=== PATIENT | female | born 1990 | race Caucasian/White ===

== ENCOUNTER 2024-06-11 15:43 | Emergency (ER) | payer BC ==
[~2024-06-11] VITALS: Ht 170.2 cm; Wt 74.0 kg
[2024-06-11 18:52] VITALS: BP 121/74; TEMP 98.9; O2SAT 99
== END 2024-06-11 18:53 | disposition home or self-care (01) ==
LOC: M ED 15:43
DX: M79.604 Pain in right leg (principal); F41.9 Anxiety disorder, unspecified

== ENCOUNTER → 2024-12-05 | Outpatient (REF) | payer BC ==
[2024-12-05 16:08] LABS: APPEARANCE, URINE CLEAR (CLEAR); BACTERIA, URINE AUTO NEGATIVE (NEGATIVE); BILIRUBIN, URINE AUTO NEGATIVE (NEGATIVE); BLOOD, URINE BLOOD NEGATIVE (NEGATIVE); COLOR, URINE YELLOW (YELLOW); GLUCOSE, URINE (UA) AUTO NEGATIVE (NEGATIVE); KETONE, URINE AUTO NEGATIVE (NEGATIVE); LEUKOCYTE ESTERASE, URINE AUTO NEGATIVE (NEGATIVE); MUCUS, URINE SMALL (NEGATIVE); NITRITE, URINE AUTO NEGATIVE (NEGATIVE); PROTEIN, URINE AUTO NEGATIVE (NEGATIVE); RBC, URINE AUTO 1 /HPF (0-3); SPECIFIC GRAVITY URINE AUTO 1.018 (1.002-1.035); SQUAMOUS EPITHELIAL CELL UR AU 1 /HPF (0-6); UROBILINOGEN, URINE AUTO 0.2 mg/dL (0.0-2.0); WBC, URINE AUTO 0 /HPF (0-3)
== END ==
LOC: M SFHCWAGY 15:50
PROVIDERS: ATTEND Advanced Practice Midwife
DX: R30.0 Dysuria (principal)

== ENCOUNTER → 2024-12-13 | Outpatient (CLI) | payer BC ==
[2024-12-13 17:30] LABS: HEMATOCRIT 38.6 % (36.0-47.0); HEMOGLOBIN 13.4 g/dl (12.0-15.5); MEAN CORPUSCULAR HEMOGLOBIN 31.8 pg (27.0-33.0); MEAN CORPUSCULAR HGB CONC 34.7 g/dl (32.0-36.5); MEAN CORPUSCULAR VOLUME 91.5 fl (80.0-96.0); PLATELET COUNT, AUTOMATED 287 10^3/uL (150-450); RED BLOOD COUNT 4.22 10^6/uL (4.00-5.40); WHITE BLOOD COUNT 9.8 10^3/uL (4.0-10.0)
[2024-12-13 18:26] LABS: HIV 1&2 SCREEN NEGATIVE (NEGATIVE)
[2024-12-13 18:35] LABS: HEPATITIS C VIRUS ABY INDEX 0.06 INDEX (<0.8)
== END ==
LOC: M PLALAB 16:03
PROVIDERS: ATTEND Obstetrics & Gynecology
DX: Z34.80 Encounter for supervision of other normal pregnancy, unspecified trimester (principal)

== ENCOUNTER → 2024-12-17 | Outpatient (CLI) | payer BC | LOC: M WHC 09:52 | PROVIDERS: ATTEND Obstetrics & Gynecology | DX: Z36.89 Encounter for other specified antenatal screening (principal) ==

== ENCOUNTER → 2025-01-25 | Outpatient (CLI) | payer BC | LOC: M WHC 12:47 | PROVIDERS: ATTEND Nurse Practitioner Family | DX: Z34.80 Encounter for supervision of other normal pregnancy, unspecified trimester (principal) ==

== ENCOUNTER → 2025-04-02 | Outpatient (CLI) | payer BC ==
[2025-04-02 13:52] LABS: PLATELET COUNT, AUTOMATED 292 10^3/uL (150-450)
[2025-04-02 14:04] LABS: TOTAL PROTEIN,RANDOM URINE 31.9 MG/DL (0.0-14.0)
[2025-04-02 14:11] LABS: LDH LACTATE DEHYDROGENASE 159 U/L (120-246)
[2025-04-02 14:12] LABS: ALT/SGPT 25 U/L (7.0-40); AST/SGOT 28 U/L (<34); CREATININE FOR GFR 0.66 MG/DL (0.55-1.30); GLOMERULAR FILTRATION RATE > 90.0 (>60)
== END ==
LOC: M PLALAB 10:30
PROVIDERS: ATTEND Nurse Practitioner Family
DX: R03.0 Elevated blood-pressure reading, without diagnosis of hypertension (principal)

== ENCOUNTER → 2025-04-16 | Outpatient (REF) | payer BC | LOC: M PLALAB 10:35 | PROVIDERS: ATTEND Nurse Practitioner Family | DX: O09.813 Supervision of pregnancy resulting from assisted reproductive technology, third trimester (principal); Z3A.36 36 weeks gestation of pregnancy ==

== ENCOUNTER → 2025-04-24 | Outpatient (REF) | payer BC | LOC: M PLALAB 14:28 | PROVIDERS: ATTEND Nurse Practitioner Family | DX: R30.0 Dysuria (principal) ==

== ENCOUNTER 2025-05-16 16:05 | Inpatient (IN) | payer BC ==
[2025-05-16] VITALS (7 sets, daily range): BP systolic 127–158; BP diastolic 68–105; O2SAT 100
[~2025-05-16] VITALS: Ht 167.6 cm; Wt 88.0 kg
[2025-05-16] MEDS ORDERED: PRENTAB9 PO (16:30)
[2025-05-16] MEDS ORDERED: HOME MED LIST COMPLETE! XX SCH (16:30)
[2025-05-16] MEDS ORDERED: MM S100C PO (16:30)
[2025-05-16] MEDS ORDERED: CALC500T60 PO (16:30)
[2025-05-16] MEDS ORDERED: TRANEXAMIC ACID INJection 1,000 MG in NS 100 ML IV PRN (16:30)
[2025-05-16] MEDS ORDERED: LIDOCAINE 1% MDV 20 ML VIAL INFIL PRN (16:30)
[2025-05-16] MEDS: miSOPROStol 50 MCG 1/2 TABLET PO SCH (17:14)
[2025-05-16 17:17] LABS: PLATELET COUNT, AUTOMATED 245 10^3/uL (150-450)
[2025-05-16 17:29] LABS: TOTAL PROTEIN,RANDOM URINE 12.8 MG/DL (0.0-14.0)
[2025-05-16 17:33] LABS: LDH LACTATE DEHYDROGENASE 211 U/L (120-246)
[2025-05-16 17:34] LABS: ALT/SGPT 19 U/L (7.0-40); AST/SGOT 26 U/L (<34); CREATININE FOR GFR 0.71 MG/DL (0.55-1.30); GLOMERULAR FILTRATION RATE > 90.0 (>60)
[2025-05-16 18:06] LABS: HIV 1&2 SCREEN NEGATIVE (NEGATIVE)
[2025-05-17] VITALS (13 sets, daily range): BP systolic 118–151; BP diastolic 61–115; O2SAT 97
[2025-05-17] MEDS ORDERED: ONDANSETRON 4MG 2ML VIAL IV PRN (03:10)
[2025-05-17] MEDS ORDERED: LR 500 ML IV PRN (03:10)
[2025-05-17] MEDS ORDERED: NALOXONE INJ 0.4 MG/1 ML VIAL IV PRN (03:10)
[2025-05-17] MEDS ORDERED: EPIDURAL/PCA KEYS XX PRN (03:10)
[2025-05-17] MEDS ORDERED: diphenhydrAMINE 50 MG/ML VIAL IV PRN (03:10)
[2025-05-17] MEDS ORDERED: FENTANYL 2 MCG/ML ROPIVACAINE 0.2% IN 0.9% NACL 100 ML IVBAG As Ordered ONE (03:11)
[2025-05-17] MEDS: LR 1,000 ML IV SCH (03:17)
[2025-05-17] MEDS: FENTANYL/ROPIVACAINE/NACL BAG 100 ML EPIDURAL SCH (03:17)
[2025-05-17] MEDS: OXYTOCIN DRIP 30 UNITS in IV 1 EA IV PRN (03:48)
[2025-05-17] MEDS ORDERED: LR 1,000 ML IV SCH (04:15)
[2025-05-17] MEDS ORDERED: OXYTOCIN DRIP 30 UNITS in IV 1 EA IV SCH (04:15)
[2025-05-17] MEDS ORDERED: MOM 30 ML SUSPENSION UDC PO PRN (06:00)
[2025-05-17] MEDS ORDERED: DIBUCAINE 1% OINTMENT 30 GM TOP PRN (06:00)
[2025-05-17] MEDS ORDERED: ACETAMINOPHEN 500 MG TAB PO PRN (06:00)
[2025-05-17] MEDS ORDERED: ANUSOL HC CREAM 30 GM TOP PRN (06:00)
[2025-05-17] MEDS ORDERED: ACETAMINOPHEN 325 MG TAB PO PRN (06:00)
[2025-05-17] MEDS: OXYTOCIN DRIP 30 UNITS in IV 1 EA IV SCH (06:00)
[2025-05-17] MEDS ORDERED: METHYLERGONOVINE MALEATE 0.2 MG TAB PO PRN (06:00)
[2025-05-17] MEDS ORDERED: CALCIUM CARBONATE 500 MG CHEW U/D PO PRN (06:00)
[2025-05-17] MEDS ORDERED: RHOGAM 300MCG (1500IU) INJ IM SCH (06:00)
[2025-05-17] MEDS: PRENATAL VITAMINS CHEWABLE TABLET PO SCH (07:57)
[2025-05-17] MEDS: IBUPROFEN 600 MG TAB PO PRN (07:57)
[2025-05-17 21:38] LABS: HEPATITIS C VIRUS ABY INDEX 0.02 INDEX (<0.8)
[2025-05-18 05:42] VITALS: BP 119/76; O2SAT 98
[2025-05-18] MEDS: DOCUSATE SODIUM 100 MG CAPSULE PO PRN (09:18)
[2025-05-18] MEDS: IBUPROFEN 800 MG TAB PO PRN (09:19)
[2025-05-19] MEDS ORDERED: MEASLES,MUMPS,RUBELLA VACCINE INJ (MMR-II) SC.IMMUN ONE (09:00)
== END 2025-05-18 13:25 | disposition home or self-care (01) | DRG 560 ==
LOC: M LDI 16:05 → M OBS 05-17 06:30
PROVIDERS: ADMIT Obstetrics & Gynecology; ATTEND Obstetrics & Gynecology
PROC: 3E033VJ Introduction of Other Hormone into Peripheral Vein, Percutaneous Approach (ICD-10-PCS; 2025-05-16)
PROC: 10E0XZZ Delivery of Products of Conception, External Approach (ICD-10-PCS; principal; 2025-05-17)
DX: O48.0 Post-term pregnancy (principal); Z37.0 Single live birth; Z3A.40 40 weeks gestation of pregnancy